=== PATIENT | female | born 1995 | race Caucasian/White ===

== ENCOUNTER 2023-05-17 14:31 | Inpatient (IN) | payer BC, SELFPAY ==
[2023-05-17 17:13] VITALS: BMI 25.6
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
[2023-05-17] MEDS: hydrOXYzine HCL 25 MG TABLET PO (18:21)
[2023-05-17 22:05] VITALS: BP 113/75; PULSE 62; RESP 16; TEMP 36.8; O2SAT 98
[2023-05-17] MEDS: lamoTRIgine 25 MG TABLET 50 MG PO (22:16)
[2023-05-17] MEDS: traZODone HCL 50 MG TABLET PO ×2 (22:33→23:39)
[2023-05-18 08:05] LABS: Alanine Aminotransferase 13 U/L (0-31); Albumin Level 3.8 g/dL (3.5-5.0); Alkaline Phosphatase 64 U/L (39-117); Anion Gap 10 (12-20); Aspartate Amino Transferase 19 U/L (5-31); Bilirubin Total 0.2 mg/dL (0.0-1.0); Blood Urea Nitrogen 15 mg/dL (9-16); Calcium 9.5 mg/dL (8.4-10.2); Carbon Dioxide 29 mmol/L (22-29); Chloride 105 mmol/L (96-108); Cholesterol 171 mg/dL (<200); Creatinine Clr Calc Pharmacy 81.3; Estimated Glomerular Filt Rate > 60; Glucose Fasting 90 mg/dL (60-99); HDL Cholesterol 45 mg/dL (>40); LDL Cholesterol Calculated 105 mg/dL (<100); Potassium 4.5 mmol/L (3.3-5.1); Sodium 139 mmol/L (135-145); Total Protein 6.8 g/dL (6.5-8.0); Triglycerides 107 mg/dL (<150)
[2023-05-18 09:00] VITALS: BP 97/70; PULSE 72; RESP 16; TEMP 36.6; O2SAT 98
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
[2023-05-18] MEDS: Venlafaxine HCl ER 37.5 MG CAP.ER.24H PO ×2 (09:40→13:24)
[2023-05-18] MEDS: Thiamine HCL 100 MG TABLET PO (09:40)
[2023-05-18] MEDS: lamoTRIgine 25 MG TABLET PO ×2 (09:40→13:24)
[2023-05-18] MEDS: Folic Acid 1 MG TABLET PO (09:40)
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
[2023-05-18 11:07] LABS: UPreg QC Valid YES; Urine Pregnancy NEGATIVE (NEGATIVE)
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
[2023-05-18 13:00] VITALS: BP 148/67; PULSE 66; RESP 16; TEMP 36.3; O2SAT 97
[2023-05-18] MEDS: Naltrexone HCl 50 MG TABLET PO (13:24)
[2023-05-18] MEDS: Nicotine 21 MG PATCH.TD24 TRANSDERMA (13:32)
--- NOTE | 2023-05-18 15:59 | PC.NURSE ---
Patient remains alert and ox4. She received order for nicotine patch.
[2023-05-18] MEDS: Nicotine Polacrilex 2 MG GUM 4 MG BUCCAL (21:04)
[2023-05-18 21:50] VITALS: BP 135/87; PULSE 83; RESP 16; TEMP 36.4; O2SAT 100
[2023-05-18] MEDS: lamoTRIgine 25 MG TABLET 50 MG PO (21:59)
[2023-05-18] MEDS: traZODone HCL 100 MG TABLET PO (21:59)
[2023-05-18] MEDS: hydrOXYzine HCL 25 MG TABLET PO (22:01)
[2023-05-19 09:00] VITALS: BP 98/54; PULSE 60; RESP 16; TEMP 36.2; O2SAT 97
[2023-05-19] MEDS: Nicotine 21 MG PATCH.TD24 TRANSDERMA (09:52)
[2023-05-19] MEDS: Folic Acid 1 MG TABLET PO (09:53)
[2023-05-19] MEDS: lamoTRIgine 25 MG TABLET 50 MG PO ×2 (09:55→22:48)
[2023-05-19] MEDS: Naltrexone HCl 50 MG TABLET PO (09:56)
[2023-05-19] MEDS: Thiamine HCL 100 MG TABLET PO (09:56)
[2023-05-19] MEDS: Venlafaxine HCl ER 75 MG CAP.ER.24H PO (09:56)
[2023-05-19 13:00] VITALS: BP 111/66; PULSE 77; RESP 16; TEMP 36.7; O2SAT 98
[2023-05-19] MEDS: Fluconazole 150 MG TABLET PO (15:48)
--- NOTE | 2023-05-19 15:52 | PC.NURSE ---
Patient reported having s/s of yeast infection. Per patient, I have vaginal itchiness with discharge since this morning. Any way I can get some monostat to treat this. Patient's concerns reported to Jennie Juan NP. Patient received order for diflucan 150mg po x1. Patient took her first dose with no s/s of reaction observed, patient remains stable.
[2023-05-19] MEDS: hydrOXYzine HCL 25 MG TABLET PO (20:17)
--- NOTE | 2023-05-19 20:19 | HO.PSYCHPN ---
Subjective Subjective Date of Service: 05/19/23 Reason For Visit: Bipolar Disorder Unspecified Depressive Disorder Subjective Notes: Conditional Voluntary Interim History: Pt reports feeling better today. She reports she slept well. She reports she had some nausea and vomiting last night- could be related to naltrexon- but pt to try again tomorrow and monitor. No SI today. She has been visible on the unit, seen smiling and socializing with peers. Review of Systems Review of Systems Pt denies chest pain. NO SOB Mental Status Exam Mental Status Exam Narrative: Appearance:casually groomed, fair hygine, in NAD behavior:cooperative Psychomotor: no agitation or retardation noted Speech:clear, normal rate/rhythm/volume, spontaneous TP:linear TC:no signs of psychosis or delusions, feeling depressed and hopeless Mood: better Affect:brighter SI:none HI: none VH/AH:none Delusions:none Insight/judgment:none memory/cog: alert, oriented x 3. Diagnostics Vital Signs (24Hr): Vital Signs - 24 hr 05/18/23 21:50 05/19/23 09:00 05/19/23 13:00 Temperature 97.5 F 97.2 F 98.1 F Pulse Rate 83 60 77 Respiratory Rate 16 16 16 Blood Pressure 135/87 98/54 L 111/66 Pulse Oximetry 100 97 98 Oxygen Delivery Method Room Air Room Air Room Air BMI result Body Mass Index 25.6 Labs 05/18/23 07:25 Labs: Laboratory Results - last 48 hr 05/18/23 05/18/23 07:25 10:40 Sodium 139 Potassium 4.5 Chloride 105 Carbon Dioxide 29 Anion Gap 10 L BUN 15 Creatinine 0.91 Estim Creat Clear Calc 81.3 Estimated GFR > 60 Fasting Glucose 90 Calcium 9.5 Total Bilirubin 0.2 AST 19 ALT 13 Alkaline Phosphatase 64 Total Protein 6.8 Albumin 3.8 Triglycerides 107 Cholesterol 171 LDL Cholesterol, Calc 105 H HDL Cholesterol 45 Urine Test NEGATIVE Medications Medications Current Medications Acetaminophen (Acetaminophen 325 Mg Tablet) 650 mg PO Q6H PRN PRN Reason: Headache/Pain Mild Scale (1-3) Al Hydroxide/Mg Hydroxide (Magnesium Hydrox/Alum Hydrox 30 Ml Oral.Susp) 30 ml PO Q6H PRN PRN Reason: Heartburn/Nausea Folic Acid (Folic Acid 1 Mg Tablet) 1 mg PO DAILY [facility] Last Admin: 05/19/23 09:53 Dose: 1 mg Hydroxyzine HCl (Hydroxyzine Hcl 25 Mg Tablet) 25 mg PO Q6H PRN PRN Reason: Anxiety Last Admin: 05/19/23 20:17 Dose: 25 mg Lamotrigine (Lamotrigine 25 Mg Tablet) 50 mg PO BEDTIME [facility] Last Admin: 05/18/23 21:59 Dose: 50 mg Lamotrigine (Lamotrigine 25 Mg Tablet) 50 mg PO DAILY [facility] Last Admin: 05/19/23 09:55 Dose: 50 mg Lorazepam (Lorazepam 1 Mg Tablet) 1 mg PO Q4H PRN PRN Reason: Alcohol Withdrawal Magnesium Hydroxide (Milk Of Magnesia 30 Ml Oral.Susp) 30 ml PO DAILY PRN PRN Reason: Constipation Naltrexone HCl (Naltrexone Hcl 50 Mg Tablet) 50 mg PO DAILY [facility] Last Admin: 05/19/23 09:56 Dose: 50 mg Nicotine (Nicotine 21 Mg Patch.Td24) 21 mg TRANSDERMA DAILY [facility] Last Admin: 05/19/23 09:52 Dose: 21 mg Nicotine Polacrilex (Nicotine Polacrilex 2 Mg Gum) 4 mg BUCCAL Q1H PRN PRN Reason: Nicotine Cravings Last Admin: 05/18/23 21:04 Dose: 4 mg Thiamine HCl (Thiamine Hcl 100 Mg Tablet) 100 mg PO DAILY [facility] Last Admin: 05/19/23 09:56 Dose: 100 mg Trazodone HCl (Trazodone Hcl 100 Mg Tablet) 100 mg PO BEDTIME PRN PRN Reason: Sleep Last Admin: 05/18/23 21:59 Dose: 100 mg Venlafaxine HCl (Venlafaxine Hcl Er 75 Mg Cap.Er.24h) 75 mg PO DAILY [facility] Last Admin: 05/19/23 09:56 Dose: 75 mg Allergies Allergies Allergy/AdvReac Type Severity Reaction Status Date / Time Penicillins Allergy Unknown Verified 05/17/23 13:08 Assessment & Plan Assessment & Plan (1) Bipolar 2 disorder, major depressive episode: Status: Acute Code(s): F31.81 - Bipolar II disorder (2) PTSD (post-traumatic stress disorder): Status: Acute Code(s): F43.10 - Post-traumatic stress disorder, unspecified (3) Alcohol use disorder, moderate, dependence: Status: Acute Code(s): F10.20 - Alcohol dependence, uncomplicated Plan Ms. Huang is a 28 year-old woman with hx of MDD, recently trauma which has exacerbated symptoms of depression, anger, suicidal ideation. She self presented twice to [facility], second time reported suicidal ideation with plan to [place] Pt endorses increased depressed mood, suicidal ideation, feeling hopeless and angry. We discussed risks, benefits and alternative treatment options. Pt was on CIWA at [facility] prior to transfer to this unit. No alcohol withdrawal symptoms at this point. Pt continued on thiamine. She agreed to increase effexor to 75mg po daily. She agreed to increased lamictal from 75mg po/vamsi to 50mg po BID. She also agreed to trial of naltrexon to decrease alcohol use. PLAN 05/19 continue tx. monitor nausea s/s to naltrexon- but for now will continue. Reason for continued inpatient stay Substantial Risk for: harm to self Time Spent With Patient Time: Total time managing care of this patient today ____ minutes.
[2023-05-19] MEDS: traZODone HCL 100 MG TABLET PO (22:48)
[2023-05-19 22:51] VITALS: BP 119/69; PULSE 72; TEMP 36.8; O2SAT 99
[2023-05-20 09:45] VITALS: BP 102/59; PULSE 55; TEMP 36.8; O2SAT 98
[2023-05-20] MEDS: lamoTRIgine 25 MG TABLET 50 MG PO ×2 (09:54→22:33)
[2023-05-20] MEDS: Nicotine 21 MG PATCH.TD24 TRANSDERMA (09:55)
[2023-05-20] MEDS: Folic Acid 1 MG TABLET PO (09:55)
[2023-05-20] MEDS: Thiamine HCL 100 MG TABLET PO (09:55)
[2023-05-20] MEDS: Venlafaxine HCl ER 75 MG CAP.ER.24H PO (09:55)
[2023-05-20] MEDS: Naltrexone HCl 50 MG TABLET PO (09:55)
[2023-05-20] MEDS: hydrOXYzine HCL 10 MG TABLET PO (15:46)
--- NOTE | 2023-05-20 17:57 | P.PNPSI_ITS ---
Subjective Subjective Date of Service: 05/20/23 Reason For Visit: Bipolar Disorder Unspecified Depressive Disorder Interim History: vivid dreams with trazodone, doesn't want to switch for fear of another medication causing weight gain. lots of self-hating thoughts, asks how these will be treated. discuss therapy and PHP options. feels low-dose hydroxyzine may be helpful for anxiety; 10 mg each Rxed. per staff, safe in hospital but SI not sure if safe outside. visit with father. diflucan for yeast infection Sx. attending groups. very anxious. Mental Status Exam Mental Status Exam Narrative: Appearance:casually groomed, fair hygine, in NAD behavior:cooperative Psychomotor: no agitation or retardation noted Speech:clear, normal rate/rhythm/volume, spontaneous TP:linear TC:no signs of psychosis or delusions, feeling depressed and hopeless Mood: anxious and depressed Affect:brighter SI:none expressed HI: none expressed VH/AH:none expressed Delusions:none expressed Insight/judgment:none memory/cog: alert, oriented x 3. Diagnostics Vital Signs (24Hr): Vital Signs - 24 hr 05/19/23 22:51 05/20/23 09:45 Temperature 98.2 F 98.3 F Pulse Rate 72 55 Blood Pressure 119/69 102/59 L Pulse Oximetry 99 98 Oxygen Delivery Method Room Air Room Air BMI result Body Mass Index 25.6 Labs 05/18/23 07:25 Medications Medications Current Medications Acetaminophen (Acetaminophen 325 Mg Tablet) 650 mg PO Q6H PRN PRN Reason: Headache/Pain Mild Scale (1-3) Al Hydroxide/Mg Hydroxide (Magnesium Hydrox/Alum Hydrox 30 Ml Oral.Susp) 30 ml PO Q6H PRN PRN Reason: Heartburn/Nausea Folic Acid (Folic Acid 1 Mg Tablet) 1 mg PO DAILY [facility] Last Admin: 05/20/23 09:55 Dose: 1 mg Hydroxyzine HCl (Hydroxyzine Hcl 25 Mg Tablet) 25 mg PO BEDTIME PRN PRN Reason: insomnia Hydroxyzine HCl (Hydroxyzine Hcl 10 Mg Tablet) 10 mg PO Q6H PRN PRN Reason: Anxiety Last Admin: 05/20/23 15:46 Dose: 10 mg Lamotrigine (Lamotrigine 25 Mg Tablet) 50 mg PO BEDTIME [facility] Last Admin: 05/19/23 22:48 Dose: 50 mg Lamotrigine (Lamotrigine 25 Mg Tablet) 50 mg PO DAILY [facility] Last Admin: 05/20/23 09:54 Dose: 50 mg Magnesium Hydroxide (Milk Of Magnesia 30 Ml Oral.Susp) 30 ml PO DAILY PRN PRN Reason: Constipation Naltrexone HCl (Naltrexone Hcl 50 Mg Tablet) 50 mg PO DAILY [facility] Last Admin: 05/20/23 09:55 Dose: 50 mg Nicotine (Nicotine 21 Mg Patch.Td24) 21 mg TRANSDERMA DAILY [facility] Last Admin: 05/20/23 09:55 Dose: 21 mg Nicotine Polacrilex (Nicotine Polacrilex 2 Mg Gum) 4 mg BUCCAL Q1H PRN PRN Reason: Nicotine Cravings Last Admin: 05/18/23 21:04 Dose: 4 mg Thiamine HCl (Thiamine Hcl 100 Mg Tablet) 100 mg PO DAILY [facility] Last Admin: 05/20/23 09:55 Dose: 100 mg Trazodone HCl (Trazodone Hcl 100 Mg Tablet) 100 mg PO BEDTIME PRN PRN Reason: Sleep Last Admin: 05/19/23 22:48 Dose: 100 mg Venlafaxine HCl (Venlafaxine Hcl Er 75 Mg Cap.Er.24h) 75 mg PO DAILY [facility] Last Admin: 05/20/23 09:55 Dose: 75 mg Allergies Allergies Allergy/AdvReac Type Severity Reaction Status Date / Time Penicillins Allergy Unknown Verified 05/17/23 13:08 Assessment & Plan Assessment & Plan (1) Bipolar 2 disorder, major depressive episode: Status: Acute Code(s): F31.81 - Bipolar II disorder (2) PTSD (post-traumatic stress disorder): Status: Acute Code(s): F43.10 - Post-traumatic stress disorder, unspecified (3) Alcohol use disorder, moderate, dependence: Status: Acute Code(s): F10.20 - Alcohol dependence, uncomplicated Plan Ms. Huang is a 28 year-old woman with hx of MDD, recently trauma which has exacerbated symptoms of depression, anger, suicidal ideation. She self presented twice to [facility], second time reported suicidal ideation with plan to jump [place] traffic [place]. Pt endorses increased depressed mood, suicidal ideation, feeling hopeless and angry. We discussed risks, benefits and alternative treatment options. Pt was on CIWA at [facility] prior to transfer to this unit. No alcohol withdrawal symptoms at this point. Pt continued on thiamine. She agreed to increase effexor to 75mg po daily. She agreed to increased lamictal from 75mg po/vamsi to 50mg po BID. She also agreed to trial of naltrexon to decrease alcohol use. PLAN 05/19 continue tx. monitor nausea s/s to naltrexone- but for now will continue. 05/20: add hydroxyzine 10 mg PRN. otjerwise continue current mgmt. Reason for continued inpatient stay Substantial Risk for: harm to self, inability to function and rapid decompensation Time Spent With Patient Time: Total time managing care of this patient today _25___ minutes.
[2023-05-20 20:23] VITALS: BP 117/81; RESP 16; TEMP 36.9; O2SAT 99
[2023-05-20] MEDS: traZODone HCL 100 MG TABLET PO (22:33)
[2023-05-21] MEDS: Naltrexone HCl 50 MG TABLET PO (09:40)
[2023-05-21] MEDS: Nicotine 21 MG PATCH.TD24 TRANSDERMA (09:40)
[2023-05-21] MEDS: Venlafaxine HCl ER 75 MG CAP.ER.24H PO (09:41)
[2023-05-21] MEDS: Thiamine HCL 100 MG TABLET PO (09:41)
[2023-05-21] MEDS: lamoTRIgine 25 MG TABLET 50 MG PO ×2 (09:41→21:55)
[2023-05-21] MEDS: Folic Acid 1 MG TABLET PO (09:42)
[2023-05-21 09:46] VITALS: BP 107/61; PULSE 60; RESP 16; TEMP 36.2; O2SAT 98
--- NOTE | 2023-05-21 15:46 | P.PNPSI_ITS ---
Subjective Subjective Date of Service: 05/21/23 Reason For Visit: Bipolar Disorder Unspecified Depressive Disorder Interim History: calm, cooperative. had a pretty good day yesterday. improved mood, not scared of myself like i was yesterday. put in 3-day, thinking she'll be good to go soon, is bandied about as a discharge day. per staff, quiet, withdrawn. isolative. attending groups. taking meds. social afternoon and eves. slept well. Mental Status Exam Mental Status Exam Narrative: Appearance:casually groomed, fair hygiene, in NAD behavior:cooperative Psychomotor: no agitation or retardation noted Speech:clear, normal rate/rhythm/volume, spontaneous TP: linear, logical TC:no signs of psychosis or delusions, feeling depressed and hopeless Mood: improved Affect:brighter SI: none expressed HI: none expressed VH/AH: none expressed Delusions: none expressed memory/cog: alert, oriented x 3. Diagnostics Vital Signs (24Hr): Vital Signs - 24 hr 05/20/23 20:23 05/21/23 09:46 Temperature 98.4 F 97.1 F Pulse Rate 60 Respiratory Rate 16 16 Blood Pressure 117/81 107/61 Pulse Oximetry 99 98 Oxygen Delivery Method Room Air Room Air BMI result Body Mass Index 25.6 Labs 05/18/23 07:25 Medications Medications Current Medications Acetaminophen (Acetaminophen 325 Mg Tablet) 650 mg PO Q6H PRN PRN Reason: Headache/Pain Mild Scale (1-3) Al Hydroxide/Mg Hydroxide (Magnesium Hydrox/Alum Hydrox 30 Ml Oral.Susp) 30 ml PO Q6H PRN PRN Reason: Heartburn/Nausea Folic Acid (Folic Acid 1 Mg Tablet) 1 mg PO DAILY [facility] Last Admin: 05/21/23 09:42 Dose: 1 mg Hydroxyzine HCl (Hydroxyzine Hcl 25 Mg Tablet) 25 mg PO BEDTIME PRN PRN Reason: insomnia Hydroxyzine HCl (Hydroxyzine Hcl 10 Mg Tablet) 10 mg PO Q6H PRN PRN Reason: Anxiety Last Admin: 05/20/23 15:46 Dose: 10 mg Lamotrigine (Lamotrigine 25 Mg Tablet) 50 mg PO BEDTIME [facility] Last Admin: 05/20/23 22:33 Dose: 50 mg Lamotrigine (Lamotrigine 25 Mg Tablet) 50 mg PO DAILY [facility] Last Admin: 05/21/23 09:41 Dose: 50 mg Magnesium Hydroxide (Milk Of Magnesia 30 Ml Oral.Susp) 30 ml PO DAILY PRN PRN Reason: Constipation Naltrexone HCl (Naltrexone Hcl 50 Mg Tablet) 50 mg PO DAILY [facility] Last Admin: 05/21/23 09:40 Dose: 50 mg Nicotine (Nicotine 21 Mg Patch.Td24) 21 mg TRANSDERMA DAILY [facility] Last Admin: 05/21/23 09:40 Dose: 21 mg Nicotine Polacrilex (Nicotine Polacrilex 2 Mg Gum) 4 mg BUCCAL Q1H PRN PRN Reason: Nicotine Cravings Last Admin: 05/18/23 21:04 Dose: 4 mg Thiamine HCl (Thiamine Hcl 100 Mg Tablet) 100 mg PO DAILY [facility] Last Admin: 05/21/23 09:41 Dose: 100 mg Trazodone HCl (Trazodone Hcl 100 Mg Tablet) 100 mg PO BEDTIME PRN PRN Reason: Sleep Last Admin: 05/20/23 22:33 Dose: 100 mg Venlafaxine HCl (Venlafaxine Hcl Er 75 Mg Cap.Er.24h) 75 mg PO DAILY [facility] Last Admin: 05/21/23 09:41 Dose: 75 mg Allergies Allergies Allergy/AdvReac Type Severity Reaction Status Date / Time Penicillins Allergy Unknown Verified 05/17/23 13:08 Assessment & Plan Assessment & Plan (1) Bipolar 2 disorder, major depressive episode: Status: Acute Code(s): F31.81 - Bipolar II disorder (2) PTSD (post-traumatic stress disorder): Status: Acute Code(s): F43.10 - Post-traumatic stress disorder, unspecified (3) Alcohol use disorder, moderate, dependence: Status: Acute Code(s): F10.20 - Alcohol dependence, uncomplicated Plan Ms. Huang is a 28 year-old woman with hx of MDD, recently trauma which has exacerbated symptoms of depression, anger, suicidal ideation. She self presented twice to [facility] [place], second time reported suicidal ideation with plan to jump [place] traffic [place]. Pt endorses increased depressed mood, suicidal ideation, feeling hopeless and angry. We discussed risks, benefits and alternative treatment options. Pt was on CIWA at [facility] prior to transfer to this unit. No alcohol withdrawal symptoms at this point. Pt continued on thiamine. She agreed to increase effexor to 75mg po daily. She agreed to increased lamictal from 75mg po/vamsi to 50mg po BID. She also agreed to trial of naltrexon to decrease alcohol use. PLAN 05/19: continue tx. monitor nausea s/s to naltrexone- but for now will continue. 05/20: add hydroxyzine 10 mg PRN. otherwise continue current mgmt. 05/21: continue current mgmt. focus on skills-building. considering DC. 3-day up saturday. Reason for continued inpatient stay Substantial Risk for: inability to function and rapid decompensation Time Spent With Patient Time: Total time managing care of this patient today __25__ minutes.
[2023-05-21 18:00] VITALS: BP 116/75; PULSE 69; RESP 16; TEMP 36.7; O2SAT 100
[2023-05-21 22:15] VITALS: BP 116/75; PULSE 69; RESP 16; TEMP 36.7; O2SAT 100
[2023-05-21] MEDS: traZODone HCL 100 MG TABLET PO (22:24)
[2023-05-21] MEDS: hydrOXYzine HCL 25 MG TABLET PO (22:25)
[2023-05-22 09:40] VITALS: BP 137/71; PULSE 89; RESP 18; TEMP 36.3; O2SAT 98
[2023-05-22] MEDS: Naltrexone HCl 50 MG TABLET PO (10:21)
[2023-05-22] MEDS: Folic Acid 1 MG TABLET PO (10:21)
[2023-05-22] MEDS: Thiamine HCL 100 MG TABLET PO (10:21)
[2023-05-22] MEDS: Nicotine 21 MG PATCH.TD24 TRANSDERMA (10:21)
[2023-05-22] MEDS: Venlafaxine HCl ER 75 MG CAP.ER.24H PO (10:22)
[2023-05-22] MEDS: lamoTRIgine 25 MG TABLET 50 MG PO ×2 (10:22→21:28)
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
[2023-05-22] MEDS: traZODone HCL 100 MG TABLET PO (21:28)
[2023-05-22 21:40] VITALS: BP 128/80; PULSE 72; RESP 18; TEMP 36.6; O2SAT 99
[2023-05-23 10:11] VITALS: BP 113/64; PULSE 86; RESP 18; TEMP 37; O2SAT 98
[2023-05-23] MEDS: Folic Acid 1 MG TABLET PO (10:13)
[2023-05-23] MEDS: lamoTRIgine 25 MG TABLET 50 MG PO (10:13)
[2023-05-23] MEDS: Naltrexone HCl 50 MG TABLET PO (10:13)
[2023-05-23] MEDS: Venlafaxine HCl ER 75 MG CAP.ER.24H PO (10:14)
[2023-05-23] MEDS: Thiamine HCL 100 MG TABLET PO (10:14)
== END 2023-05-23 11:34 | disposition home or self-care (01) | DRG 753 ==
PROVIDERS: Psychiatry & Neurology Psychiatry; Admitting Provider Psychiatry & Neurology Psychiatry; PCP Nurse Practitioner Family; Visit Provider Psychiatry & Neurology Psychiatry
DX: F31.81 Bipolar II disorder (principal); R45.851 Suicidal ideations; F17.210 Nicotine dependence, cigarettes, uncomplicated; F43.10 Post-traumatic stress disorder, unspecified; F10.20 Alcohol dependence, uncomplicated; Z71.6 Tobacco abuse counseling; Z79.899 Other long term (current) drug therapy
CPT/HCPCS: 36415; 80053; 80061; 81025

== ENCOUNTER → 2023-05-17 14:31 | Outpatient (BNV) | payer BC, SELFPAY | PROVIDERS: Admitting Provider Psychiatry & Neurology Psychiatry; PCP Nurse Practitioner Family; Visit Provider Social Worker | DX: F31.81 Bipolar II disorder (principal); F43.11 Post-traumatic stress disorder, acute; F10.20 Alcohol dependence, uncomplicated | CPT/HCPCS: 90792; 99231; 99232; 99239 ==

== ENCOUNTER → 2023-05-17 14:31 | Outpatient (BNV) | payer BC, SELFPAY | PROVIDERS: Admitting Provider Psychiatry & Neurology Psychiatry; PCP Nurse Practitioner Family; Visit Provider Physician Assistant | DX: U07.1 COVID-19 (principal) | CPT/HCPCS: 99221 ==

== ENCOUNTER → 2023-06-07 12:30 | Outpatient (BNV) | payer BC, SELFPAY | PROVIDERS: Visit Provider Psychiatry & Neurology Psychiatry | DX: F10.20 Alcohol dependence, uncomplicated (principal); F43.10 Post-traumatic stress disorder, unspecified; F31.81 Bipolar II disorder | CPT/HCPCS: 90792; 90832; 99213 ==

== ENCOUNTER 2023-06-25 13:00 | Outpatient (RCR) | payer BC, SELFPAY ==
[2023-06-07 10:51] VITALS: BP 119/80; PULSE 64; TEMP 37.2
[2023-06-07 10:53] VITALS: BMI 25.2
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
--- NOTE | 2023-06-07 14:53 | HO.PHP ---
I met with the client after group to assess safety. She states that she has chronic suicidal ideation but will not act on the thoughts because she wants to give this program a chance to work. She talked about needing to start by liking herself which is what she struggles with. She states that she likes the groups because she feels less alone and thinks that PHP will be helpful. She found the groups in the hospital helpful. She states that she is safe and denies any safety concerns . Her goal is to stay sober and safe and to return to [facility] next Saturday.
--- NOTE | 2023-06-11 13:45 | HO.PHPPROGNO ---
Subjective Subjective Date of Service: 06/11/23 Reason For Visit: depression,anxiety Interim History: Julieth is seen in a follow-up on a semi urgent basis at the request of 1 of the clinicians in the program. Around issues of suicidality she was somewhat vague in the group and they are concerned. In talking to Rosalva it appears that she has had passive and active suicidal ideation since age 17 with a recent attempt but she denies any plans or intent at this time and states that she is well aware of emergency availabilities if the need arises. I do not feel that she needs to be hospitalized at this time. Current medications were reviewed and continued Review of Systems Review of Systems Yes all other systems are reviewed and are negative Mental Status Exam Mental Status Exam Narrative: In today's visit she is alert, oriented and pleasant. Normal speech. Little eye contact. Affect is appropriate with moderate to severe anxiety present. No signs of psychosis. She denies any current active suicidal or homicidal ideations. Cognitively is intact. Judgment is intact Diagnostics Vital Signs (24Hr): BMI result Body Mass Index 25.2 Assessment & Plan Assessment & Plan (1) PTSD (post-traumatic stress disorder): Status: Acute Code(s): F43.10 - Post-traumatic stress disorder, unspecified Plan Continue partial hospital program. Continue medications. No urgent actions necessary Certification I certify that partial hospital treatment is medically necessary due to the symptoms and problems resulting from the patient's mental illness and the failure to treat the patient at the partial hospital level of care would likely result in the patient requiring inpatient psychiatric care which could not be prevented at a less intensive level of care. Total time managing care of this patient today ____ minutes. Discharge Plan Discharge Attending provider: Maxim Anne Medications: New venlafaxine [Effexor XR] 150 mg capsule,extended release 24hr 150 mg PO DAILY Qty: 30 0RF No Action venlafaxine 75 mg Capsule,Extended Release 24hr 75 mg PO DAILY 30 Days Qty: 30 0RF naltrexone 50 mg Tablet 50 mg PO DAILY 30 Days Qty: 30 0RF lamotrigine 25 mg Tablet 50 mg PO BID 30 Days Qty: 120 0RF trazodone 100 mg Tablet 100 mg PO BEDTIME PRN (Reason: Sleep) 30 Days Qty: 30 0RF folic acid 1 mg Tablet 1 mg PO DAILY 30 Days Qty: 30 0RF hydroxyzine HCl 25 mg Tablet 25 mg PO BEDTIME PRN (Reason: insomnia) 30 Days Qty: 30 0RF hydroxyzine HCl 10 mg Tablet 10 mg PO Q6H PRN (Reason: Anxiety) 30 Days Qty: 60 0RF thiamine mononitrate (vit B1) 100 mg Tablet 100 mg PO DAILY 30 Days Qty: 30 0RF
--- NOTE | 2023-06-11 16:43 | HO.PHP ---
PHP staff followed up with Julieth after group 3 due to her expressing uncertainty around a plan and intent for SI. Julieth expressed that she has a plan and has had one prior to the hospital, which was to jump in front of a car. PHP assess if Julieth has any intent to act on that. Julieth was not clear around if she had an intent and disclosed that it depends on her moods or if she is feeling abandoned. Julieth expressed that these are just thoughts at this time and isn't going to act on this. PHP staff asked Julieth if she would like to get evaluated. Julieth voiced that she does not want to get evaluated because inpatient level of care is not what she needs at this time because it would make her more suicidal. Julieth noted that she enjoys being at this level of care and finds this to be more beneficial. PHP staff was receptive and informed Julieth that she is going to further explore with the team to gather next steps. Julieth was receptive.
--- NOTE | 2023-06-11 16:59 | HO.PHP ---
[facility] staff member met with Julieth and disclosed that she met with the team and we agreed at this time, we would like to reach out to one of her parents to discuss a safety plan with her. Julieth disclosed that this is going to make her shut down more and not want to talk if we have to call her parents. PHP staff insured her that we are doing this to make sure she is safe and to continue to receive support in the home setting. Julieth stated if that is what we need to do then she is okay with that. Julieth continued to express frustration and feeling unheard. [facility] staff repeated back the concerns she presented, in which she continued to state her plan is to jump in front of a car and disclosed that those feelings only occur when she is struggling with her mood or feelings of abandonment. Julieth agreed. Julieth expressed that right now they are thoughts and she is not going to act. Julieth talked about how her parents are already questioning her for what she does to make sure she is safe and expressed concerns around worrying them. [facility] staff provided Julieth with how she is going to communicate the situation. Julieth was receptive and signed a release to contact her father. [facility] staff voiced some concerns to the father around safety with Julieth and noted that she would like to review the safety plan with him so they are able to keep her safe within the home setting. Julieth's father disclosed that he would like for the [facility] staff member to contact him back due to being at work. [facility] staff was receptive and asked Julieth if she is okay with her talking to her father separately. Julieth noted that she would be okay with that.
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
--- NOTE | 2023-06-12 13:10 | HO.PHP ---
PHP staff followed up with Julieth around the conversation that was held the previous day and to see if she was able to further process. Julieth had noted that she didn't process and was bother by the conversation because she felt that she was unheard when she was being honest. PHP staff disclosed that was not the intent and stated that there were safety concerns around how she worded the situation. Julieth repeated what she said the previous day and was uncertain to how she relayed it where there was a concern. PHP staff noted that she was stating not really, which was not a yes or no, therefore, she had to further contract for safety. Julieth was receptive and had a better understanding. Julieth noted that she feels there was miscommunication between both her and the clinician. PHP staff noted that while attending the program we want to provide support and help her if necessary and apologized if that is not how it was presented. Julieth was receptive and thanked the clinician.
--- NOTE | 2023-06-13 17:53 | HO.PHP ---
Clients case was reviewed and opened today in treatment team.
--- NOTE | 2023-06-14 15:18 | HO.PHP ---
[facility] staff followed up with Julieth after group 3 due to her presented as depressed and sad. Julieth noted that she is having a challenging day with thoughts of feeling useless. PHP staff suggested that when she begins to have those thoughts, to remind herself of how she has helped herself or others. Julieth was receptive and tearful. [facility] staff assessed for safety, in which Julieth noted she will be safe. Juileth disclosed that she is only having thoughts and has no plan or intent. Julieth expressed what her plans are for the weekend, which was going to a haunted house and spending time with her friends. Julieth did voice the challenges she has been having with sobriety due to the emotions she has been feeling. [facility] staff was empathetic. Julieth again informed staff that she will be safe this weekend and returning on Saturday.
--- NOTE | 2023-06-18 12:18 | HO.PHPPROGNO ---
Subjective Subjective Date of Service: 06/18/23 Reason For Visit: depression,anxiety Interim History: Patient was seen for follow-up. Last seen for follow up w Dr. 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 Downtime leads to ?too much time in her head overthinking. she has found a Partial Program a helpful milieu for improving insight and understanding with listening and identifying her struggles in others during group therapy. she has been sober now for 38 days is not necessarily any easier but it says it's quite dependent on the environment and exacerbated by stress. Denies any substance use in interim. She is currently at lamotrigine 125 mg and will pump up to 150 mg as per treatment plan and is requesting a refill on naltrexone 50 mg, continues on Effexor XR 150 mg is it okay to use up her remaining 75 mg capsules (2 caps per day) in the interim. Will plan to refill meds at discharge. She also asked for a letter for work to allow her to wear an air bud as she has hearing loss in her right ear with only 35% hearing. Employees are allowed to listen to music without head phones, however she has difficulty hearing it, and it feels listening to music would be helpful way to manage her symptoms especially on work days. Mental Status Exam Mental Status Exam Narrative: Pleasant, engaged, forthcoming. Casually dressed, maintains good eye contact. Normal speech. Reports mood will ongoing depression, anxiety that is more manageable. Affect is subdued, She denies any current active suicidal or homicidal ideations. No paranoid content. No evidence of psychosis. Cognitively is intact. Insight and judgment is intact Diagnostics Vital Signs (24Hr): BMI result Body Mass Index 25.2 Assessment & Plan Assessment & Plan (1) Alcohol use disorder, moderate, dependence: Status: Acute Code(s): F10.20 - Alcohol dependence, uncomplicated (2) PTSD (post-traumatic stress disorder): Status: Acute Code(s): F43.10 - Post-traumatic stress disorder, unspecified (3) Bipolar 2 disorder, major depressive episode: Status: Acute Code(s): F31.81 - Bipolar II disorder Plan increase Lamictal to 150 mg qd (rx sent) cont naltrexone 50 mg qd (rx sent) cont Effexor XR 150 mg qd cont hydroxyzine 10 mg PRN anxiety, 25 mg qhs PRN sleep (will order one script of 25 mg tabs to decrease cost) request letter for work for accommodations to use ear bud (hearing loss: 35% on R) Certification I certify that partial hospital treatment is medically necessary due to the symptoms and problems resulting from the patient's mental illness and the failure to treat the patient at the partial hospital level of care would likely result in the patient requiring inpatient psychiatric care which could not be prevented at a less intensive level of care. Total time managing care of this patient today _30___ minutes. Discharge Plan Discharge Attending provider: Maxim Anne Medications: New venlafaxine [Effexor XR] 150 mg capsule,extended release 24hr 150 mg PO DAILY Qty: 30 0RF lamotrigine 100 mg tablet 150 mg PO DAILY 14 Days Qty: 21 0RF Continued naltrexone 50 mg Tablet 50 mg PO DAILY 14 Days Qty: 14 0RF No Action venlafaxine 75 mg Capsule,Extended Release 24hr 75 mg PO DAILY 30 Days Qty: 30 0RF lamotrigine 25 mg Tablet 50 mg PO BID 30 Days Qty: 120 0RF trazodone 100 mg Tablet 100 mg PO BEDTIME PRN (Reason: Sleep) 30 Days Qty: 30 0RF folic acid 1 mg Tablet 1 mg PO DAILY 30 Days Qty: 30 0RF hydroxyzine HCl 25 mg Tablet 25 mg PO BEDTIME PRN (Reason: insomnia) 30 Days Qty: 30 0RF hydroxyzine HCl 10 mg Tablet 10 mg PO Q6H PRN (Reason: Anxiety) 30 Days Qty: 60 0RF thiamine mononitrate (vit B1) 100 mg Tablet 100 mg PO DAILY 30 Days Qty: 30 0RF
--- NOTE | 2023-06-25 16:29 | HO.PHPPROGNO ---
Subjective Subjective Date of Service: 06/25/23 Reason For Visit: depression,anxiety Interim History: Patient was seen, scheduled to be discharged today. Patient was hoping to get a little more of an extension. Not looking forward to getting back to work. Has been trying to stay busy, keep mind off of ruminating on anxieties, has been pretty successfully managing stress. Endorses passive SI that has improved, occurring about 1 day out of the week (vs daily when she started partial). Denies any intention or urges to harm self or others. Last SI thoughts were over a week ago. Has been tolerant with increase of Lamictal to 150 mg QD. Continues on other medications. Now taking 12.5 mg hydroxyzine bid PRN anxiety and 25 mg qhs prn sleep. Requesting refills of hydroxyzine, naltrexone and Lamictal. Has enough remaining 75 mg caps of Effexor to take 2 a day. Will follow up with med provider Sravani Staton on Jul 31 @ 4:[address] [facility]. Also has a therapist Rosario Sher through same practice whom she is scheduled with at 5pm today. Patient denies any acute issues or concerns. Medication Compliance: Yes Side effects from medications: No Mental Status Exam Mental Status Exam Narrative: Pleasant, engaged, forthcoming. Casually dressed, maintains good eye contact. Normal speech. Reports mood is ok , anxiety that is more manageable. Affect is brighter, She denies any current active suicidal or homicidal ideations. No paranoid content. No evidence of psychosis. Cognitively is intact. Insight and judgment is intact Diagnostics Vital Signs (24Hr): BMI result Body Mass Index 25.2 Assessment & Plan Assessment & Plan (1) Alcohol use disorder, moderate, dependence: Status: Acute Code(s): F10.20 - Alcohol dependence, uncomplicated (2) PTSD (post-traumatic stress disorder): Status: Acute Code(s): F43.10 - Post-traumatic stress disorder, unspecified (3) Bipolar 2 disorder, major depressive episode: Status: Acute Code(s): F31.81 - Bipolar II disorder Plan Discharge from [facility] today, follow-up with community providers Reviewed discharge instructions with patient, packet signed and given to patient Continue on current medications. Rx refills for Lamictal 150 mg qd, naltrexone 50 mg qd, hydroxyzine 25 mg (1/2 BID anxiety PRN, 1 tablet qhs prn). All set with Effexor 150 mg/d, no refills needed at this time. Primary supports: parents. Lives at home with family. Patient educated on: diagnosis and medication risk/benefits Informed Consent: understands Reason for contiued partial hosp. stay Substantial Risk for: stable for discharge Certification I certify that partial hospital treatment is medically necessary due to the symptoms and problems resulting from the patient's mental illness and the failure to treat the patient at the partial hospital level of care would likely result in the patient requiring inpatient psychiatric care which could not be prevented at a less intensive level of care. Total time managing care of this patient today _30___ minutes. Discharge Plan Discharge Attending provider: Maxim Anne Medications: New venlafaxine [Effexor XR] 150 mg capsule,extended release 24hr 150 mg PO DAILY Qty: 30 0RF hydroxyzine HCl 25 mg tablet 25 mg PO BID PRN (Reason: as directed; for anxiety, sleep) Qty: 60 0RF Continued naltrexone 50 mg Tablet 50 mg PO DAILY 30 Days Qty: 30 0RF lamotrigine 100 mg tablet 150 mg PO DAILY 30 Days Qty: 45 0RF Discontinued lamotrigine 25 mg Tablet 50 mg PO BID 30 Days Qty: 120 0RF No Action venlafaxine 75 mg Capsule,Extended Release 24hr 75 mg PO DAILY 30 Days Qty: 30 0RF trazodone 100 mg Tablet 100 mg PO BEDTIME PRN (Reason: Sleep) 30 Days Qty: 30 0RF folic acid 1 mg Tablet 1 mg PO DAILY 30 Days Qty: 30 0RF hydroxyzine HCl 25 mg Tablet 25 mg PO BEDTIME PRN (Reason: insomnia) 30 Days Qty: 30 0RF hydroxyzine HCl 10 mg Tablet 10 mg PO Q6H PRN (Reason: Anxiety) 30 Days Qty: 60 0RF thiamine mononitrate (vit B1) 100 mg Tablet 100 mg PO DAILY 30 Days Qty: 30 0RF Stand Alone Forms: Patient Portal Discharge page Patient Education: Post Traumatic Stress Disorder (DC), Alcohol Use Disorder (DC)
== END 2023-06-25 23:59 | disposition home or self-care (01) ==
LOC: HO.PHPA 13:00
PROVIDERS: Visit Provider Psychiatry & Neurology Psychiatry
DX: F43.10 Post-traumatic stress disorder, unspecified (principal); F31.81 Bipolar II disorder; F10.20 Alcohol dependence, uncomplicated; Z79.899 Other long term (current) drug therapy
CPT/HCPCS: 90791; 90853

== ENCOUNTER → 2023-09-18 08:15 | Outpatient (BNV) | payer BC, SELFPAY | PROVIDERS: Visit Provider Psychiatry & Neurology Psychiatry | DX: F31.81 Bipolar II disorder (principal); F43.10 Post-traumatic stress disorder, unspecified; F10.20 Alcohol dependence, uncomplicated | CPT/HCPCS: 90792; 99213 ==

== ENCOUNTER 2023-09-30 08:00 | Outpatient (RCR) | payer BC, SELFPAY ==
[2023-09-16 14:18] VITALS: BP 127/76; PULSE 70; RESP 16; TEMP 36.8
--- NOTE | 2023-09-16 14:55 | PC.ADMIT ---
Patient is alert and oriented x 4. states her current mood is good but has noticed she feels more depressed with difficulty staying awake. C/o increased sleep pattern to approx 8-12 hours. Patient reports seeing her therapist weekly and feels this helps her with some feelings she experiences. Pt states she has not drank alcohol in the last 4 month but continues to smoke marijuana daily to relax at night. Pt is well groomed, attentive, anxious , speech is clear with good eye contact. Mild hand tremors observed and patient reports has been like this for awhile. Patient states she lives with her parents currently and has a good family support system with parents and friends. [ End ]
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
--- NOTE | 2023-09-17 08:19 | HO.PHP ---
Julieth contacted the program to inform the staff that she will not be in attendance for the day due to inclement weather. Julieth reported no concerns around SI,plan, or intent. Julieth disclosed she is safe and will be in attendance to program tomorrow.
--- NOTE | 2023-09-18 14:20 | HO.PHP ---
I met with the client individually to check about her level of risk after stating she has suicidal thoughts without plan or intention. She states that she has had those thoughts for many years and they are just thoughts. She denies any plan or intention and states that she will be safe tonight and will be back tomorrow. For her information I gave a paper with the numbers for crisis.
--- NOTE | 2023-09-19 17:33 | HO.PHP ---
Client's case was opened and reviewed in treatment team.
--- NOTE | 2023-09-20 22:20 | HO.PHPPROGNO ---
Subjective Subjective Date of Service: 09/20/23 Reason For Visit: depression Interim History: Patient reports possibly feeling a little less irritable with decrease in Effexor from 150 mg to 112.5 mg/d . She is still struggling with mood dsyregulation, still prone to emotional outbursts and poor frustration tolerance. I go from 1 to 100 in seconds . We discuss her Borderline diagnosis, which she says makes sense . People either love me or hate me...there's no in between . She reports some issues with behavioral dysregulation, punching merida, slamming doors, but denies ever aggressively posturing or threatening others. She mostly struggles with low mood and irritability (moreso then hypomania, irritability only occurs when mood is very low, improves with less depression). She has chronic passive SI, No thoughts or intention to hurt self currently. We discuss mood stabilization and she says she very much would like to start on treatment to help with intrusive and obsessional thoughts, high reactivity, and depression. PTSD issues. She is agreeable to starting Latuda. Paperwork for FMLA filled out and signed today, given to office specialist to be faxed. Patient was given a copy. Medication Compliance: Yes Side effects from medications: No Attending Groups: Yes Review of Systems Acute medical concerns: No Mental Status Exam Mental Status Exam Narrative: Pleasant, engaged, forthcoming. Casually dressed, maintains good eye contact. Normal speech. Reports mood depressed, anxiety that is more manageable. Affect is subdued, variable. Endorses persistent passive suicidal ideation, denies aggressive ideations. No paranoid content. No evidence of psychosis. Cognitively is intact. Insight and judgment is good Assessment & Plan Assessment & Plan (1) Bipolar 2 disorder, major depressive episode: Status: Acute Code(s): F31.81 - Bipolar II disorder (2) PTSD (post-traumatic stress disorder): Status: Acute Code(s): F43.10 - Post-traumatic stress disorder, unspecified (3) Alcohol use disorder, moderate, dependence: Status: Acute Code(s): F10.20 - Alcohol dependence, uncomplicated Plan start Latuda 20 mg qd with evening meal continue other regular medications Lab slip given [facility] reviewed continue to monitor as per protocol Patient educated on: diagnosis, medication risk/benefits and substance abuse Informed Consent: understands Reason for contiued partial hosp. stay Substantial Risk for: harm to self, inability to function, rapid decompensation and med/psych decompensation Certification I certify that partial hospital treatment is medically necessary due to the symptoms and problems resulting from the patient's mental illness and the failure to treat the patient at the partial hospital level of care would likely result in the patient requiring inpatient psychiatric care which could not be prevented at a less intensive level of care. Total time managing care of this patient today __30__ minutes. Discharge Plan Discharge Attending provider: Magalis Sr Additional Instructions: Julieth has an OP therapist, Rosario Sher, through [facility], in which her next scheduled appointment would be October 04, 2023 at 4 PM. Julieth has a med provider Sravani Staton, in which her next scheduled appointment is September 29, 2023 at 4:30 PM. Medications: New venlafaxine 75 mg capsule,extended release 24hr 75 mg PO QAM Qty: 14 0RF Rx Instructions: take with 37.5 mg capsule = 112.5 mg daily in AM venlafaxine 37.5 mg capsule,extended release 24hr 37.5 mg PO DAILY Qty: 14 0RF Rx Instructions: take with 75 mg capsule = 112.5 mg daily in AM Continued hydroxyzine HCl 25 mg tablet 25 mg PO BID PRN (Reason: as directed; for anxiety, sleep) Qty: 60 0RF lamotrigine 100 mg tablet 200 mg PO DAILY lurasidone 20 mg tablet 20 mg PO QPM 14 Days Qty: 14 0RF Rx Instructions: must administer with food (at least 350 calories) Discontinued venlafaxine [Effexor XR] 150 mg Capsule,Extended Release 24hr 150 mg PO DAILY No Action trazodone 100 mg Tablet 100 mg PO BEDTIME PRN (Reason: Sleep) 30 Days Qty: 30 0RF Stand Alone Forms: Patient Portal Discharge page
--- NOTE | 2023-09-27 21:49 | HO.PHPPROGNO ---
Subjective Subjective Date of Service: 09/27/23 Reason For Visit: depression Interim History: Patient seen for follow-up. She appears bright and engaging. Reports improvements in mood stability. Was previously at a 2/10 on her best days, now she is at a 2 out of 10 on her worst days and better days mood stability is at a 4 of 10, which she is pleased about. She is tolerating the Latuda and just bumped up to 40 mg today. Denies any adverse effects. She has some concern around weight gain, as she has a history of easily putting on weight with medication even though there is considerably less concern with Latuda vs other antipsychotic mood stabilizers. Patient has found her time helpful here. She asks about staying on longer, feeling she benefits from the structure and can see she has made progress but still has a ways to go in managing stress and regulating mood and behaviors. Medication Compliance: Yes Side effects from medications: No Attending Groups: Yes Review of Systems Acute medical concerns: No Mental Status Exam Mental Status Exam Narrative: Pleasant, engaged, forthcoming. Casually dressed, maintains good eye contact. Normal speech. Reports mood variable, anxiety that is more manageable. Affect is full range, reactive, at time animated and intense. No evidence of thought disorder. Thought content relevant to stressors, interpersonal struggles, chornic mood and behavioral dysregulation. Denies any current suicidal ideation, denies aggressive ideation. No paranoid content. No evidence of psychosis. Cognitively is intact. Insight and judgment is good Assessment & Plan Assessment & Plan (1) Bipolar 2 disorder, major depressive episode: Status: Acute Code(s): F31.81 - Bipolar II disorder (2) PTSD (post-traumatic stress disorder): Status: Acute Code(s): F43.10 - Post-traumatic stress disorder, unspecified (3) Alcohol use disorder, moderate, dependence: Status: Acute Code(s): F10.20 - Alcohol dependence, uncomplicated (4) H/O borderline personality disorder: Status: Acute Code(s): Z86.59 - Personal history of other mental and behavioral disorders Plan will continue Latuda at 40 mg/d and plan to titrate to 60 mg next week continue venlafaxine ER 112.5 mg qd continue lamotrigine 200 mg qd start metformin 250 mg qhs continue trazodone 100 mg qhs PRN sleep continue to monitor Patient educated on: diagnosis, medication risk/benefits and substance abuse Informed Consent: understands Certification I certify that partial hospital treatment is medically necessary due to the symptoms and problems resulting from the patient's mental illness and the failure to treat the patient at the partial hospital level of care would likely result in the patient requiring inpatient psychiatric care which could not be prevented at a less intensive level of care. Total time managing care of this patient today __30__ minutes. Discharge Plan Discharge Attending provider: Magalis Sr Additional Instructions: Julieth has an OP therapist, Rosario Sher, through [facility], in which her next scheduled appointment would be October 04, 2023 at 4 PM. Julieth has a med provider Sravani Staton, in which her next scheduled appointment is September 29, 2023 at 4:30 PM. Medications: New venlafaxine 75 mg capsule,extended release 24hr 75 mg PO QAM Qty: 14 0RF Rx Instructions: take with 37.5 mg capsule = 112.5 mg daily in AM venlafaxine 37.5 mg capsule,extended release 24hr 37.5 mg PO DAILY Qty: 14 0RF Rx Instructions: take with 75 mg capsule = 112.5 mg daily in AM lurasidone 60 mg tablet 60 mg PO DAILY Qty: 30 0RF Rx Instructions: must administer with food (at least 350 calories) metformin 500 mg tablet 250 mg PO .QHS Qty: 20 0RF Continued hydroxyzine HCl 25 mg tablet 25 mg PO BID PRN (Reason: as directed; for anxiety, sleep) Qty: 60 0RF lamotrigine 100 mg tablet 200 mg PO DAILY Discontinued venlafaxine [Effexor XR] 150 mg Capsule,Extended Release 24hr 150 mg PO DAILY No Action trazodone 100 mg Tablet 100 mg PO BEDTIME PRN (Reason: Sleep) 30 Days Qty: 30 0RF Stand Alone Forms: Patient Portal Discharge page
--- NOTE | 2023-09-30 19:28 | HO.PHPPROGNO ---
Subjective Subjective Date of Service: 09/30/23 Reason For Visit: depression Interim History: Patient seen for follow-up, she has completed the program and will be discharged at the end of the program today. I'm okay, everything's ok. I'm feeling good today, no issues . She reports still having some depression, but overall thre has been improvements on the Latuda, which was recently increased to 40 mg daily. She denies having any adverse effects. She has been taking the medication with supper. She rates her depression severity at a 4 or 5 out of 10. Reports irritability has improved to a 6 out of 10 in severity. She endorses SI as occurs occasionally but that has gone down too . She reports it has been at least 3 days since the last time she had a thought, and adds that this was a passing thought, not obsessing over it and feels overall these are improvements. She denies any thoughts or urges to self harm, and says in fact she has not really had these thoughts or engaged in these behaviors since high school. Reportedly she has been working on paperwork for disability, [facility] Medication Compliance: Yes Side effects from medications: No Attending Groups: Yes Review of Systems Acute medical concerns: No Mental Status Exam Mental Status Exam Narrative: Pleasant, engaged, forthcoming. Casually dressed, maintains good eye contact. Normal speech. Mood I feel good today . Affect is full range, reactive.. No evidence of thought disorder. Thought content relevant to stressors, interpersonal struggles, chronic mood and behavioral dysregulation. Denies any current suicidal ideation, denies aggressive ideation. No paranoid content. No evidence of psychosis. Cognitively is intact. Insight and judgment is good Assessment & Plan Assessment & Plan (1) Bipolar 2 disorder, major depressive episode: Status: Acute Code(s): F31.81 - Bipolar II disorder (2) PTSD (post-traumatic stress disorder): Status: Acute Code(s): F43.10 - Post-traumatic stress disorder, unspecified (3) Alcohol use disorder, moderate, dependence: Status: Acute Code(s): F10.20 - Alcohol dependence, uncomplicated (4) H/O borderline personality disorder: Status: Acute Code(s): Z86.59 - Personal history of other mental and behavioral disorders Plan Discharge from [facility] continue current medication regime will defer further medication management to outpatient provider - Sravani Staton Psych appointment on 09/29 at 4:30 pm, she sees her therapist Rosario Sher weekly Refills sent to pharmacy Patient educated on: diagnosis, medication risk/benefits and substance abuse Informed Consent: understands Reason for contiued partial hosp. stay Substantial Risk for: stable for discharge Certification I certify that partial hospital treatment is medically necessary due to the symptoms and problems resulting from the patient's mental illness and the failure to treat the patient at the partial hospital level of care would likely result in the patient requiring inpatient psychiatric care which could not be prevented at a less intensive level of care. Total time managing care of this patient today __30__ minutes. Discharge Plan Discharge Attending provider: Magalis Sr Additional Instructions: Julieth has an OP therapist, Rosario Sher, through [facility], in which her next scheduled appointment would be October 04, 2023 at 4 PM. Julieth has a med provider Sravani Staton, in which her next scheduled appointment is September 29, 2023 at 4:30 PM. Medications: New metformin 500 mg tablet 250 mg PO .QHS Qty: 20 0RF lurasidone 40 mg tablet 40 mg PO QPM 14 Days Qty: 14 0RF Rx Instructions: must administer with food (at least 350 calories) naltrexone 50 mg tablet 50 mg PO DAILY 30 Days Qty: 30 0RF Continued hydroxyzine HCl 25 mg tablet 25 mg PO BID PRN (Reason: as directed; for anxiety, sleep) Qty: 60 0RF lamotrigine 100 mg tablet 200 mg PO DAILY venlafaxine 37.5 mg capsule,extended release 24hr 37.5 mg PO DAILY Qty: 14 0RF Rx Instructions: take with 75 mg capsule = 112.5 mg daily in AM venlafaxine 75 mg capsule,extended release 24hr 75 mg PO QAM Qty: 14 0RF Rx Instructions: take with 37.5 mg capsule = 112.5 mg daily in AM trazodone 100 mg Tablet 100 mg PO BEDTIME PRN (Reason: Sleep) 30 Days Qty: 30 0RF Discontinued venlafaxine [Effexor XR] 150 mg Capsule,Extended Release 24hr 150 mg PO DAILY Stand Alone Forms: Patient Portal Discharge page Patient Education: Bipolar Disorder (DC), Alcohol Use Disorder (DC)
== END 2023-09-30 23:59 | disposition home or self-care (01) ==
LOC: HO.PHPA 08:00
PROVIDERS: Visit Provider Psychiatry & Neurology Psychiatry
DX: F31.81 Bipolar II disorder (principal); F43.10 Post-traumatic stress disorder, unspecified; F10.20 Alcohol dependence, uncomplicated; Z86.59 Personal history of other mental and behavioral disorders; Z79.899 Other long term (current) drug therapy
CPT/HCPCS: 90791; 90853